=== PATIENT | female | born 1955 | race Caucasian/White ===

== ENCOUNTER → 2017-05-09 | Outpatient (CLI) | payer BC ==
[2016-02-29 11:35] VITALS: BP 127/86
[~2017-05-09] MED LIST: GOOD NEIGHBOR200 M3 PO; MULTIVITAMIN1 SGL PO
== END ==
LOC: LAB 14:23
DX: M85.60 Other cyst of bone, unspecified site (principal)

== ENCOUNTER → 2017-05-10 | Outpatient (CLI) | payer BC ==
[2016-02-29 11:35] VITALS: BP 127/86
== END ==
LOC: RAD 13:00
PROVIDERS: Nurse Practitioner Family
DX: M27.49 Other cysts of jaw (principal)
CPT/HCPCS: Q9967

== ENCOUNTER → 2017-06-10 | Outpatient (CLI) | payer BC ==
[2016-02-29 11:35] VITALS: BP 127/86
[2017-06-10 15:47] LABS: HEMOGLOBIN 13.2 g/dL (12.5-16.0); MEAN PLATELET VOLUME 9.1 fl (7.4-10.4); RED BLOOD COUNT 4.41 M/mm3 (4.10-5.30); RED CELL DISTRIBUTION WIDTH 12.8 % (11.5-14.5); WHITE BLOOD COUNT 7.5 K/mm3 (4.8-10.8)
[2017-06-10 16:04] LABS: ALBUMIN 4.1 g/dL (3.5-5.0); BUN/CREATININE RATIO 27.5 (6.0-26.0); CALCIUM 9.8 mg/dL (8.4-10.2); POTASSIUM 3.8 mmol/L (3.6-5.0); TOTAL BILIRUBIN 0.5 mg/dL (0.2-1.3); TOTAL PROTEIN 7.7 g/dL (6.3-8.2)
== END ==
LOC: LAB 15:22
PROVIDERS: Family Medicine
DX: Z00.00 Encounter for general adult medical examination without abnormal findings (principal); C07 Malignant neoplasm of parotid gland

== ENCOUNTER → 2017-08-06 | Outpatient (CLI) | payer BC ==
[2016-02-29 11:35] VITALS: BP 127/86
[2017-08-06 12:32] LABS: HEMATOCRIT 35.4 % (37.0-47.0); HEMOGLOBIN 11.1 g/dL (12.5-16.0); MEAN PLATELET VOLUME 8.9 fl (7.4-10.4); RED BLOOD COUNT 3.8 M/mm3 (4.10-5.30); RED CELL DISTRIBUTION WIDTH 13.9 % (11.5-14.5)
[2017-08-06 12:45] LABS: BUN/CREATININE RATIO 26.1 (6.0-26.0); CALCIUM 9.8 mg/dL (8.4-10.2); POTASSIUM 4.1 mmol/L (3.6-5.0)
== END ==
LOC: LAB 12:17
PROVIDERS: Family Medicine
DX: D64.9 Anemia, unspecified (principal)

== ENCOUNTER → 2017-12-17 | Outpatient (CLI) | payer BC ==
[2016-02-29 11:35] VITALS: BP 127/86
== END ==
LOC: RAD 08:39
PROVIDERS: Family Medicine
DX: C80.1 Malignant (primary) neoplasm, unspecified (principal); R07.9 Chest pain, unspecified; R91.8 Other nonspecific abnormal finding of lung field
CPT/HCPCS: Q9967

== ENCOUNTER → 2018-11-05 | Outpatient (CLI) | payer BC ==
[2016-02-29 11:35] VITALS: BP 127/86
[2018-11-05 11:32] LABS: EOS # 0.2 (0.04-0.40); EOS % 2.7 % (1.0-5.0); HEMOGLOBIN 13.4 g/dL (12.5-16.0); MEAN CELL VOLUME 91 fl (78-100); MEAN CORPUSCULAR HEMOGLOBIN 30 pg (27-31); MEAN CORPUSCULAR HGB CONC 33 g/dL (33-37); MONO # 0.6 (0.20-0.80); NEU # 3.5 (1.40-6.50); PLATELET COUNT 245 K/mm3 (130-400); RED CELL DISTRIBUTION WIDTH 13.1 % (11.5-14.5); WHITE BLOOD COUNT 6.3 K/mm3 (4.8-10.8)
[2018-11-05 11:47] LABS: ALBUMIN 4.2 g/dL (3.5-5.0); CALCIUM 9.4 mg/dL (8.4-10.2); POTASSIUM 3.8 mmol/L (3.6-5.0); TOTAL BILIRUBIN 0.5 mg/dL (0.2-1.3); TOTAL PROTEIN 7.4 g/dL (6.3-8.2)
== END ==
LOC: LAB 11:08
PROVIDERS: Family Medicine
DX: Z01.419 Encounter for gynecological examination (general) (routine) without abnormal findings (principal); E55.9 Vitamin D deficiency, unspecified; E78.5 Hyperlipidemia, unspecified

== ENCOUNTER → 2018-11-06 | Outpatient (CLI) | payer BC ==
[2016-02-29 11:35] VITALS: BP 127/86
== END ==
LOC: RAD 09:06
DX: C08.9 Malignant neoplasm of major salivary gland, unspecified (principal); Z98.890 Other specified postprocedural states; N13.30 Unspecified hydronephrosis
CPT/HCPCS: Q9967

== ENCOUNTER → 2020-04-01 | Outpatient (CLI) | payer MEDICARE, BC ==
[2016-02-29 11:35] VITALS: BP 127/86
[2020-04-01 10:53] LABS: POTASSIUM 3.9 mmol/L (3.5-5.1)
[2020-04-01 10:55] LABS: CALCIUM 9.3 mg/dL (8.3-10.5)
== END ==
LOC: CANPRECLI → LAB 10:09
PROVIDERS: Family Medicine
DX: Z98.890 Other specified postprocedural states (principal)
CPT/HCPCS: Q9967

== ENCOUNTER → 2020-07-05 | Outpatient (CLI) | payer MEDICARE, BC ==
[2016-02-29 11:35] VITALS: BP 127/86
[2020-07-05 09:14] LABS: URINE APPEARANCE BLOODY; URINE COLOR YELLOW; URINE PROTEIN(semi-quant) 1+ mg/dL (NEGATIVE)
[2020-07-05 09:15] LABS: URINE BILIRUBIN NEGATIVE (NEGATIVE); URINE BLOOD 250 ery/uL (NEGATIVE); URINE GLUCOSE NEGATIVE (NEGATIVE); URINE KETONE SMALL (NEGATIVE); URINE LEUKOCYTE ESTERASE TRACE (NEGATIVE); URINE MUCUS PRESENT (NOT PRESENT); URINE NITRATE NEGATIVE (NEGATIVE); URINE UROBILINOGEN NORMAL (NORMAL)
== END ==
LOC: LAB 08:15
PROVIDERS: Family Medicine
DX: N20.0 Calculus of kidney (principal)

== ENCOUNTER → 2020-08-11 | Outpatient (CLI) | payer MEDICARE, BC ==
[2016-02-29 11:35] VITALS: BP 127/86
[2020-08-11 11:25] LABS: ALBUMIN 4.1 g/dL (3.4-4.8); POTASSIUM 3.6 mmol/L (3.5-5.1)
[2020-08-11 11:26] LABS: CALCIUM 9.4 mg/dL (8.3-10.5)
[2020-08-11 11:27] LABS: EOS # 0.1 (0.04-0.40); EOS % 1.7 % (1.0-5.0); HEMATOCRIT 39.9 % (37.0-47.0); HEMOGLOBIN 12.9 g/dL (12.5-16.0); LYMPH# 1.5 (1.50-4.00); MEAN CELL VOLUME 92 fl (78-100); MEAN CORPUSCULAR HEMOGLOBIN 30 pg (27-31); MEAN CORPUSCULAR HGB CONC 32 g/dL (33-37); MEAN PLATELET VOLUME 8.8 fl (7.4-10.4); MONO # 0.7 (0.20-0.80); NEU # 4.7 (1.40-6.50); PLATELET COUNT 304 K/mm3 (130-400); RED BLOOD COUNT 4.35 M/mm3 (4.10-5.30); RED CELL DISTRIBUTION WIDTH 12.6 % (11.5-14.5); WHITE BLOOD COUNT 7.1 K/mm3 (4.8-10.8)
[2020-08-11 11:28] LABS: TOTAL PROTEIN 7.3 g/dL (6.2-8.1)
[2020-08-11 11:30] LABS: TOTAL BILIRUBIN 0.7 mg/dL (0.2-1.2)
[2020-08-12 03:29] LABS: CA-125 8.2 U/mL (0.0-35.0)
== END ==
LOC: LAB 10:38
PROVIDERS: Family Medicine
DX: Z00.00 Encounter for general adult medical examination without abnormal findings (principal); C56.9 Malignant neoplasm of unspecified ovary; E78.5 Hyperlipidemia, unspecified; E55.9 Vitamin D deficiency, unspecified

== ENCOUNTER → 2020-09-21 | Outpatient (CLI) | payer MEDICARE, BC ==
[2016-02-29 11:35] VITALS: BP 127/86
[2020-09-22 04:40] LABS: ERYTHROCYTE SEDIMENTATION RATE 25 mm/hr (0-30)
[2020-09-22 04:46] LABS: EOS # 0.2 (0.04-0.40); EOS % 2.4 % (1.0-5.0); HEMATOCRIT 41.4 % (37.0-47.0); HEMOGLOBIN 12.6 g/dL (12.5-16.0); LYMPH# 1.8 (1.50-4.00); MEAN CELL VOLUME 97 fl (78-100); MEAN CORPUSCULAR HEMOGLOBIN 29 pg (27-31); MEAN CORPUSCULAR HGB CONC 30 g/dL (33-37); MONO # 0.7 (0.20-0.80); NEU # 5.6 (1.40-6.50); PLATELET COUNT 311 K/mm3 (130-400); RED BLOOD COUNT 4.29 M/mm3 (4.10-5.30); RED CELL DISTRIBUTION WIDTH 13.3 % (11.5-14.5); WHITE BLOOD COUNT 8.3 K/mm3 (4.8-10.8)
== END ==
LOC: LAB 11:23
PROVIDERS: Family Medicine
DX: M25.50 Pain in unspecified joint (principal)

== ENCOUNTER → 2020-10-11 | Outpatient (CLI) | payer MEDICARE, BC ==
[2016-02-29 11:35] VITALS: BP 127/86
== END ==
LOC: RAD 10:22
DX: Z13.820 Encounter for screening for osteoporosis (principal); M81.0 Age-related osteoporosis without current pathological fracture

== ENCOUNTER → 2020-10-11 | Outpatient (CLI) | payer MEDICARE, BC ==
[2016-02-29 11:35] VITALS: BP 127/86
== END ==
LOC: MAMMO 09:56
DX: Z12.31 Encounter for screening mammogram for malignant neoplasm of breast (principal)

== ENCOUNTER → 2020-10-28 | Outpatient (CLI) | payer MEDICARE, BC ==
[2016-02-29 11:35] VITALS: BP 127/86
== END ==
LOC: RAD 10:04
DX: M79.89 Other specified soft tissue disorders (principal)

== ENCOUNTER → 2021-04-11 | Outpatient (CLI) | payer MEDICARE, BC | LOC: RAD 09:45 | DX: C08.9 Malignant neoplasm of major salivary gland, unspecified (principal); N20.0 Calculus of kidney; N28.1 Cyst of kidney, acquired; Z98.890 Other specified postprocedural states | CPT/HCPCS: Q9967 ==

== ENCOUNTER → 2021-10-24 | Outpatient (CLI) | payer MEDICARE, BC ==
[2021-10-24 12:11] LABS: BASO # 0.04 K/mm3 (0.02-0.10); EOS # 0.14 K/mm3 (0.04-0.40); EOS % 2.2 % (1.0-5.0); HEMATOCRIT 39.7 % (37.0-47.0); LYMPH# 2.17 K/mm3 (1.50-4.00); MEAN CELL VOLUME 91 fl (78-100); MEAN CORPUSCULAR HEMOGLOBIN 30 pg (27-31); MEAN CORPUSCULAR HGB CONC 33 g/dL (33-37); NEU # 3.54 K/mm3 (1.40-6.50); PLATELET COUNT 244 K/mm3 (130-400); RED BLOOD COUNT 4.37 M/mm3 (4.10-5.30); WHITE BLOOD COUNT 6.4 K/mm3 (4.8-10.8)
[2021-10-24 12:15] LABS: ALBUMIN 4.1 g/dL (3.4-4.8); POTASSIUM 3.5 mmol/L (3.5-5.1)
[2021-10-24 12:16] LABS: CALCIUM 9.5 mg/dL (8.3-10.5)
[2021-10-24 12:18] LABS: TOTAL PROTEIN 7.3 g/dL (6.2-8.1)
[2021-10-24 12:20] LABS: TOTAL BILIRUBIN 0.8 mg/dL (0.2-1.2)
== END ==
LOC: LAB 11:28
PROVIDERS: Family Medicine
DX: Z00.00 Encounter for general adult medical examination without abnormal findings (principal); Z12.31 Encounter for screening mammogram for malignant neoplasm of breast; Z12.11 Encounter for screening for malignant neoplasm of colon; E78.5 Hyperlipidemia, unspecified; C07 Malignant neoplasm of parotid gland; M81.0 Age-related osteoporosis without current pathological fracture; E55.9 Vitamin D deficiency, unspecified; J30.2 Other seasonal allergic rhinitis; M06.9 Rheumatoid arthritis, unspecified

== ENCOUNTER → 2021-10-24 | Outpatient (CLI) | payer MEDICARE, BC | LOC: MAMMO 11:26 | DX: Z12.31 Encounter for screening mammogram for malignant neoplasm of breast (principal) ==